=== PATIENT | female | born 1960 | race Two or more races ===

== ENCOUNTER 2019-03-03 12:09 | Emergency (ER) | payer OTHER ==
[~2019-03-03] VITALS: Ht 162.6 cm; Wt 54.4 kg
[2019-03-03 13:43] VITALS: BP 177/102
[2019-03-03 13:57] LABS: Urine WBC None Seen /hpf (0 - 5)
[2019-03-03 14:02] LABS: Urine Bacteria NONE SEEN /hpf (None Seen); Urine Blood Negative /uL (Negative); Urine Specific Gravity 1.002 (1.001-1.035)
== END 2019-03-03 18:18 | disposition left against medical advice (07) ==
LOC: ER 12:09
DX: R10.30 Lower abdominal pain, unspecified (principal); R11.2 Nausea with vomiting, unspecified; R19.7 Diarrhea, unspecified; Z53.21 Procedure and treatment not carried out due to patient leaving prior to being seen by health care provider
CPT/HCPCS: 81001

== ENCOUNTER 2019-04-27 21:48 | Emergency (ER) | payer OTHER ==
[~2019-04-27] VITALS: Ht 162.6 cm; Wt 63.5 kg
[2019-04-27 22:55] LABS: Basophils # (auto) 0.1 uL; Basophils % (auto) 0.6 % (0.0-2.0); Eosinophils # (auto) 0.1 uL; Eosinophils % (auto) 1.4 % (0.0-7.0); Hematocrit 50.1 % (36.0-46.0); Hemoglobin 16.8 g/dL (12.2-16.2); Lymphocytes # (auto) 3.4 uL; Lymphocytes % (auto) 35.6 % (10.0-50.0); Mean Corpuscular Hemoglobin 33.9 pg (28.0-32.0); Mean Corpuscular Hgb Conc. 33.6 g/dL (32.0-36.0); Mean Corpuscular Volume 100.7 fL (80.0-100.0); Monocytes # (auto) 0.8 uL; Monocytes % (auto) 8.2 % (0.0-12.0); Neutrophils # (auto) 5.2 uL; Neutrophils % (auto) 54.2 % (37.0-80.0); Nucleated Red Blood Cells % 0.1 %; Platelet Count (auto) 224 10^3/uL (140-450); Red Blood Cells 4.97 10^6/uL (4.0-5.20); Red Cell Distribution Width 13.9 % (11.8-14.3); White Blood Cell 9.7 10^3/uL (4.4-10.8)
[2019-04-27 23:11] LABS: Salicylate 4.4 mg/dL (2.8-20.0)
[2019-04-27 23:12] LABS: Albumin 3.8 g/dL (3.4-5.0); BUN/Creatinine Ratio 10.6; Potassium 4.1 mmol/L (3.5-5.1)
[2019-04-27 23:15] LABS: Bilirubin, Total 0.3 mg/dL (0.2-1.0); Total Protein 9.5 g/dL (6.4-8.2)
[2019-04-27 23:33] LABS: Acetaminophen < 2.0 ug/mL (10-30)
[2019-04-27 23:48] LABS: Amphetamine Screen, Urine NEGATIVE (NEGATIVE); Barbiturate Scree,Urine NEGATIVE (NEGATIVE); Benzodiazephine Screen, Urine NEGATIVE (NEGATIVE); Cannabinoid Screen, Urine NEGATIVE (NEGATIVE); Cocaine Screen, Urine NEGATIVE (NEGATIVE); Opiate Scree,Urine NEGATIVE (NEGATIVE); Phencyclidine Screen, Urine NEGATIVE (NEGATIVE)
[2019-04-28] MEDS ORDERED: ONDANSETRON HCL 4 MG/2 ML VIAL IV ONE (04:00)
[2019-04-28] MEDS ORDERED: SODIUM CHLORIDE 0.9% 1,000 ML IV ONE ×2 (04:00)
[2019-04-28 04:10] LABS: Urine Bacteria NONE SEEN /hpf (None Seen); Urine Blood Negative /uL (Negative); Urine Specific Gravity 1.006 (1.001-1.035); Urine WBC <1 /hpf (0 - 5)
[2019-04-28 07:31] VITALS: BP 157/97
[2019-04-28] MEDS ORDERED: MORPHINE SULF INJ 2 MG/ML SYRINGE 1ML IV ONE (08:30)
== END 2019-04-28 10:08 | disposition home or self-care (01) ==
LOC: ER 21:48
DX: K80.20 Calculus of gallbladder without cholecystitis without obstruction (principal); F11.23 Opioid dependence with withdrawal; G89.4 Chronic pain syndrome; I10 Essential (primary) hypertension; R11.2 Nausea with vomiting, unspecified
CPT/HCPCS: 36415; 71250; 74176; 80053; 80307; 80320; 80329; 81001; 85025; 96361; 96374; 96375; 99284; J2270; J2405; J7030